=== PATIENT | male | born 1990 ===

== ENCOUNTER 2018-02-18 18:03 | Emergency (ER) | payer OTHER ==
[2018-02-18 18:07] VITALS: RESP 18; TEMP 97.9; BMI 25.8
[2018-02-18] MEDS ORDERED: DiphenhydrAMINE 50 mg/ml Inj IVP STA (18:38)
[2018-02-18] MEDS ORDERED: Sodium Chloride 0.9% 1,000 ML IV STA (18:39)
--- NOTE | 2018-02-18 18:45 | ED PDOC ---
Arrival/HPI - General Time Seen by Provider: 02/18/18 18:27 Historian: Patient - History of Present Illness Narrative History of Present Illness (Text): 02/18/18 18:40 This 27 yo male with pmh migraines, presents to this ED c/o migraines exacerbation x 4 days. Patient stated he has not been able to sleep well due to his LEVIN. Patient admits he had a MRI of his brain x 2 weeks , which shows sinusitis, otherwise unremarkable. He said he had the MRI because his mother from a brain aneurysm x 3 months ago. Patient also noted his father from heart attack x 4 days ago. Patient denies diplopia, dysarthria, dysphagia, dizziness, sob, cp, abdominal pain, fever, weakness, paresthesias, recent travel, or sick contact. Time/Duration: Other (see hpi) Context: Home Past Medical History - Provider Review Nursing Documentation Reviewed: Yes Family/Social History - Physician Review Nursing Documentation Reviewed: Yes Family/Social History: Other (noncontributory) Allergies/Home Meds Allergies/Adverse Reactions: Allergies No Known Allergies Allergy (Verified 02/18/18 18:53) Review of Systems - Review of Systems Constitutional: Normal. absent: Fatigue, Weight Change, Fevers, Night Sweats Eyes: Photophobia. absent: Vision Changes, Eye Pain ENT: Normal Respiratory: Normal. absent: SOB, Cough Cardiovascular: Normal. absent: Chest Pain, Palpitations Gastrointestinal: Normal. absent: Abdominal Pain, Nausea, Vomiting Genitourinary Male: Normal. absent: Dysuria, Frequency, Hematuria Musculoskeletal: Normal. absent: Back Pain, Neck Pain, Myalgias Skin: Normal. absent: Rash Neurological: Headache. absent: Dizziness, Focal Weakness, Gait Changes, Speech Changes, Facial Droop, Disequilibrium, Seizure Endocrine: Normal Hemo/Lymphatic: Normal Psychiatric: Normal Physical Exam Vital Signs Temp Pulse Resp BP Pulse Ox 02/18/18 18:04 97.9 F 72 18 119/77 99 Temperature: Afebrile Blood Pressure: Normal Pulse: Regular Respiratory Rate: Normal Appearance: Positive for: Well-Appearing, Non-Toxic, Comfortable Pain Distress: None Mental Status: Positive for: Alert and Oriented X 3 - Systems Exam Head: Present: Atraumatic, Normocephalic Pupils: Present: PERRL Extroacular Muscles: Present: EOMI Conjunctiva: Present: Normal Mouth: Present: Moist Mucous Membranes Neck: Present: Normal Range of Motion Respiratory/Chest: Present: Clear to Auscultation, Good Air Exchange. No: Respiratory Distress, Accessory Muscle Use Cardiovascular: Present: Regular Rate and Rhythm, Normal S1, S2. No: Murmurs Abdomen: No: Tenderness, Distention, Peritoneal Signs Back: Present: Normal Inspection Upper Extremity: Present: Normal Inspection, Normal ROM. No: Cyanosis, Edema Lower Extremity: Present: Normal Inspection, Normal ROM. No: Edema Neurological: Present: GCS=15, CN II-XII Intact, Speech Normal, Motor Func Grossly Intact, Normal Sensory Function, Normal Cerebellar Funct, Gait Normal, Memory Normal, Other (no neuro focal deficits.) Skin: Present: Warm, Dry, Normal Color. No: Rashes Psychiatric: Present: Alert, Oriented x 3, Normal Insight, Normal Concentration Medical Decision Making ED Course and Treatment: 02/18/18 21:23 Re-evaluation. Patient feels better. Discussed results and plan with patient who expresses understanding. All questions answered and there is agreement with the plan to discharge home with instructions. Patient stable for discharge. Return if symptoms persist or worsen. Patient stated his MRI of head demonstrates sinusitis, otherwise unremarkable. He said he was recommended to see ENT, however, he would like ABX, since his appointment to see ENT is in 2 weeks. Patient feels well. Normal gait, and speech. no neuro focal deficits. Patient is alert and oriented x 3. Re-evaluation Time: 21:23 Reassessment Condition: Re-examined, Improved - Medication Orders Current Medication Orders: Discontinued Medications Dexamethasone (Decadron Inj) 10 mg IVP STAT STA Stop: 02/18/18 18:40 Last Admin: 02/18/18 19:39 Dose: 10 mg IVP Administration Document 02/18/18 19:39 AD (Rec: 02/18/18 19:39 [email or web address] Charges for Administration # of IVP Administrations 1 Diphenhydramine HCl (Benadryl) 50 mg IVP STAT STA Stop: 02/18/18 18:39 Last Admin: 02/18/18 19:39 Dose: 50 mg IVP Administration Document 02/18/18 19:39 AD (Rec: 02/18/18 19:39 AD [email or web address] Charges for Administration # of IVP Administrations 1 Sodium Chloride (Sodium Chloride 0.9%) 1,000 mls @ 999 mls/hr IV .Q1H1M STA Stop: 02/18/18 19:39 Last Admin: 02/18/18 19:39 Dose: 999 mls/hr eMAR Start Stop Document 02/18/18 19:39 AD (Rec: 02/18/18 19:[address] [email or web address] Intravenous Solution Start Date 02/18/18 Start Time 19:39 Metoclopramide HCl (Reglan) 10 mg IVP STAT STA Stop: 02/18/18 18:39 Last Admin: 02/18/18 19:39 Dose: 10 mg IVP Administration Document 02/18/18 19:39 AD (Rec: 02/18/18 19:[address] [facility] [email or web address] Charges for Administration # of IVP Administrations 1 Disposition/Present on Arrival - Present on Arrival Any Indicators Present on Arrival: No History of DVT/PE: No History of Uncontrolled Diabetes: No Urinary Catheter: No History of Decub. Ulcer: No - Disposition Have Diagnosis and Disposition been Completed?: Yes Diagnosis: Headache, Sinusitis Disposition Time: 21:25 Patient Plan: Discharge Patient Problems: Current Active Problems Problem Status Onset Headache Acute Sinusitis Acute Condition: GOOD Discharge Instructions (ExitCare): Sinusitis, Adult (DC), Headache, Adult (DC) Additional Instructions: Call private doctor for follow up visit in 1-2 days. Take medication as instructed. Drink enough fluids, and avoid alcohol or caffeine. Return to [facility] if symptoms returns, or fever. Prescriptions: Amoxicillin/Clavulanate [Augmentin 875 MG-125 MG] 1 tab PO BID #20 tab Famotidine [Pepcid] 40 mg PO DAILY #10 tablet Ibuprofen [Motrin] 600 mg PO Q8 PRN #20 tab PRN Reason: Pain, Severe (8-10) Referrals: Galen Moreno DPM [Primary Care Provider] - Follow up with primary Forms: WORK NOTE
[2018-02-18 21:40] VITALS: BP 120/77; PULSE 68; O2SAT 100
== END 2018-02-18 21:39 | disposition home or self-care (01) ==
LOC: ED 18:03
DX: J32.9 Chronic sinusitis, unspecified (principal); R51 Headache
CPT/HCPCS: 96374; 96375; 99284; J1100; J1200; J2765; J7040